=== PATIENT | male | born 1980 | race Caucasian/White ===

== ENCOUNTER → 2022-08-15 | Outpatient (CLI) | payer BC, MEDICAID ==
[~2022-08-15] MED LIST: ACHD5005 PO; CYCL10TA9 PO; NAPR-243 PO; RT-ALBUTEROL SULF 2.5 MG/3 ML PRE-MIX VIAL INH ONE
== END ==
LOC: RT 10:45
PROVIDERS: ATTEND Nurse Practitioner Family
DX: R05.3 Chronic cough (principal)
CPT/HCPCS: 94060; 94726; 94729

== ENCOUNTER 2022-10-25 20:27 | Outpatient (CLI) | payer MEDICAID ==
[~2022-10-25 20:27] MED LIST changes: -RT-ALBUTEROL SULF 2.5 MG/3 ML PRE-MIX VIAL INH ONE
== END 2022-10-26 06:20 | disposition home or self-care (01) ==
LOC: SLEEP 20:27
PROVIDERS: ATTEND Nurse Practitioner Family
DX: G47.10 Hypersomnia, unspecified (principal); E66.01 Morbid (severe) obesity due to excess calories; G47.9 Sleep disorder, unspecified; R06.83 Snoring
CPT/HCPCS: 95811